=== PATIENT | female | born 1990 | race Caucasian/White ===

== ENCOUNTER 2017-05-16 18:56 | Emergency (ER) | payer OTHER ==
--- NOTE | 2017-05-16 20:09 | UC ---
Respiratory Complaint HPI - HPI Summary HPI Summary: 26 yo female with cough for one month Initially was dry and she felt it was due to allergies past 4 days cough has markedly increased and is at times productive wheezes occasionally no fever no SOB states her current cough is typical of her bronchitis - History of Current Complaint Chief Complaint: UCRespiratory Stated Complaint: COUGH Time Seen by Provider: 05/16/17 19:33 Hx Obtained From: Patient Hx Last Menstrual Period: SPOTTING NOW Onset/Duration: Sudden Onset, Lasting Weeks, Worse Since - 4 days Timing: Constant Severity Initially: Mild Severity Currently: Severe Pain Intensity: 4 Pain Scale Used: 0-10 Numeric Character: Cough: Productive - at times Associated Signs And Symptoms: Positive: Wheezing - at times - Allergies/Home Medications Allergies/Adverse Reactions: Allergies Allergy/AdvReac Type Severity Reaction Status Date / Time SEASONAL Allergy Unknown Unknown Uncoded 05/16/17 19:42 Reaction Details PMH/Surg Hx/FS Hx/Imm Hx Previously Healthy: Yes Respiratory History: Asthma, Bronchitis, Pneumonia - Surgical History Surgical History: Yes Surgery Procedure, Year, and Place: APPY, LASIX SURGERY - Family History Known Family History: Positive: Hypertension - Social History Alcohol Use: Rare Substance Use Type: None Smoking Status (MU): Never Smoked Tobacco Review of Systems Constitutional: Fatigue Skin: Negative Eyes: Negative ENT: Negative Respiratory: Cough Cardiovascular: Negative Gastrointestinal: Negative Genitourinary: Negative Motor: Negative Neurovascular: Negative Musculoskeletal: Negative Neurological: Negative Psychological: Negative Is Patient Immunocompromised?: No All Other Systems Reviewed And Are Negative: Yes Physical Exam Triage Information Reviewed: Yes Appearance: Well-Appearing, No Pain Distress, Well-Nourished Vital Signs: Initial Vital Signs Temp 99.2 F 05/16/17 19:43 Pulse 110 05/16/17 19:43 Resp 20 05/16/17 19:43 BP 119/84 05/16/17 19:43 Pulse Ox 99 05/16/17 19:43 Eyes: Positive: Conjunctiva Clear ENT: Positive: Hearing grossly normal, TMs normal. Negative: Nasal congestion, Nasal drainage, Tonsillar swelling, Tonsillar exudate, Trismus, Muffled/hoarse voice Neck: Positive: Supple, Nontender Respiratory: Positive: Normal breath sounds, No respiratory distress, Other: - frequent cough Cardiovascular: Positive: RRR, No Murmur, Tachycardia Musculoskeletal: Positive: ROM Intact, No Edema Neurological: Positive: Alert Psychological Exam: Normal Skin Exam: Normal UC Diagnostic Evaluation - Laboratory O2 Sat by Pulse Oximetry: 99 - normal, not hypoxic Respiratory Course/Dx - Course Course Of Treatment: pt refuse CXR at this point - Differential Dx/Diagnosis Provider Diagnoses: acute bronchitis Discharge - Discharge Plan Condition: Stable Disposition: HOME Prescriptions: Amoxicillin PO (*) [Amoxicillin 875 MG (*)] 875 mg PO BID #14 tab Patient Education Materials: Acute Bronchitis (ED) Referrals: Ahsan Peacock DO [Primary Care Provider] - 3 Days (if not improved)
[2017-05-16] MEDS ORDERED: Albuterol HFA INHALER* 8 gm MDI INH ONE (20:10)
[2017-05-16] MEDS ORDERED: Amoxicillin PO (*) 500 MG CAP PO ONE (20:12)
[2017-05-16 20:40] VITALS: BP 119/84
== END 2017-05-16 20:43 | disposition home or self-care (01) ==
LOC: UCCORT 18:56
DX: J20.9 Acute bronchitis, unspecified (principal)
CPT/HCPCS: 99212; A9270-GY; G0463

== ENCOUNTER 2017-10-19 11:23 | Emergency (ER) | payer SELFPAY ==
[2017-10-19 12:32] VITALS: BP 115/67
[2017-10-19] MEDS ORDERED: Ondansetron ODT TAB* 4 MG PO ONE (13:09)
--- NOTE | 2017-10-19 13:14 | UC ---
Nausea/Vomiting/Diarrhea HPI - HPI Summary HPI Summary: 26 female presents to with complaints of having a sinus infection, untreated for the past week that has been improving however is still lingering as well as new symptoms of nausea, vomiting and diarrhea several times in the past 12 hours. Denies significant abdominal pain, just when vomiting, muscle soreness. No blood in vomit or diarrhea. Normal urination and no genitalia symptoms. Denies known flu exposure. No body aches, fever/chills. States still having sinus congestion, pressure and top of her teeth ache but has improved since it first started. No other complaints. No PMHx. Has been taking sips of water. States child has same n/v/d symptoms. No recent take out food, or leftovers. No recent travel. - History of Current Complaint Chief Complaint: UCAbdominalPain Stated Complaint: STOMACH ACHE Time Seen by Provider: 10/19/17 12:30 Hx Obtained From: Patient Hx Last Menstrual Period: 03/04/15 Onset/Duration: Sudden Onset, Lasting Hours, Still Present Timing: Constant Severity Initially: Mild Severity Currently: Mild Pain Intensity: 3 Pain Scale Used: 0-10 Numeric Location: Diffuse Aggravating Factor(s): Food Alleviating Factor(s): Nothing, Position - laying down, Vomiting Nausea/Vomiting Presence: Nauseated, Vomiting Vomiting Frequency: Every 15-60 minutes Nausea/Vomiting Duration: 0-12 hours Vomiting Characteristics: Retching, Bilious Diarrhea Presence: Yes Diarrhea Frequency: Every 15-60 minutes Diarrhea Duration: 0-12 hours Diarrhea Characteristics: Watery - Allergies/Home Medications Allergies/Adverse Reactions: Allergies Allergy/AdvReac Type Severity Reaction Status Date / Time SEASONAL Allergy Unknown Unknown Uncoded 10/19/17 12:32 Reaction Details Home Medications: Home Medications Dextroamphetamine/Amphetamine [Adderall 10 mg-] 1 tab PO DAILY 10/19/17 [ History Confirmed 10/19/17] PMH/Surg Hx/FS Hx/Imm Hx - Additional Past Medical History Additional PMH: Denies DM HTN and asthma - Surgical History Surgical History: Yes Surgery Procedure, Year, and Place: APPY, LASIX SURGERY - Family History Known Family History: Positive: Hypertension - Social History Alcohol Use: Occasionally Substance Use Type: None Smoking Status (MU): Never Smoked Tobacco Review of Systems Constitutional: Negative ENT: Sore Throat, Nasal Discharge, Sinus Congestion, Sinus Pain/Tenderness Respiratory: Cough - improved/resolved Cardiovascular: Negative Gastrointestinal: Vomiting, Diarrhea, Nausea Genitourinary: Negative Musculoskeletal: Negative Neurological: Negative All Other Systems Reviewed And Are Negative: Yes Physical Exam Triage Information Reviewed: Yes Appearance: No Pain Distress, Well-Nourished, Ill-Appearing - with dried vomit on shirt Vital Signs: Initial Vital Signs Temp 98.3 F 10/19/17 12:26 Pulse 74 10/19/17 12:26 Resp 18 10/19/17 12:26 BP 115/67 10/19/17 12: Pulse Ox 100 10/19/17 12:26 Vital Signs Reviewed: Yes Eyes: Positive: Conjunctiva Clear ENT: Positive: Pharynx normal, Nasal congestion, TMs normal - with serous effusion behind TM, Sinus tenderness, Uvula midline. Negative: Tonsillar swelling, Tonsillar exudate Dental: Positive: Percussion Tenderness @ - maxillary and frontal, Cervical Lymphadenopathy Neck: Positive: Supple, Nontender, No Lymphadenopathy Respiratory: Positive: Chest non-tender, Lungs clear, Normal breath sounds, No respiratory distress, No accessory muscle use Cardiovascular: Positive: RRR, No Murmur, Pulses Normal, Brisk Capillary Refill Abdomen Description: Positive: Nontender, Soft. Negative: Distended, Guarding Bowel Sounds: Positive: Present Musculoskeletal: Positive: Strength Intact Neurological: Positive: Alert Skin Exam: Normal - normal skin turgor Re-Evaluation - Re-Evaluation First Eval Re-Evaluation Time: 13:30 Change: Improved - feels better after zofran, able to keep down water po Naus/Vom/Diarrhea Course/Dx - Course Course Of Treatment: appears to have had sinusitis, now suffering from viral gastroenteritis. will treat with zofran. increase fluids. told if sinusitis symptoms still lingering/worsen or do not improve within 2 days can start antibiotics in 2 days. flonase. saline rinses and hot showers/warm compresses. probiotics and zofran/fluids for GI illness. Aware of worsening signs and symptoms to watch out for. Follow up. No other concerns at this time. Normal vitals. Patient agrees and understands plan/treatment. Understands not to being antibotics until GI illness has improved and probiotics taken for 2 days and only if needed for sinusitis, as it may resolve and not be needed. no other concerns at this time. - Differential Dx/Diagnosis Differential Diagnoses - Female: Gastroenteritis (Viral), Vomiting, Diarrhea, Gastritis, Other - sinusitis Provider Diagnoses: gastroenteritis, sinusitis Condition At Discharge: Stable Discharge - Discharge Plan Condition: Stable Disposition: HOME Prescriptions: Amoxicillin/Clavulanate TAB* [Augmentin TAB 875*] 875 mg PO BID #20 tab Fluticasone NASAL SPRAY 50MCG* [Flonase NASAL SPRAY 50MCG*] 2 spray BOTH NARES DAILY #1 btl Lactobacillus Acidophilus [Probiotic Acidophilus] 1 cap PO DAILY #25 cap Ondansetron ODT TAB* [Zofran 4 MG Odt TAB*] 4 mg PO Q6H PRN #15 tab.odt PRN Reason: Nausea Patient Education Materials: Probiotic (By mouth), Sinusitis (ED), Gastroenteritis (ED), Acute Nausea and Vomiting (ED) Referrals: Dhaval Santiago DO [Primary Care Provider] - Additional Instructions: Take prescribed zofran to help with nausea/vomiting. Increase fluid intake. Take daily probiotics. When able to tolerate food, eat bland BRAT diet (bananas, rice, applesauce, toast). If sinusitis symptoms do not improve, worsen or still occuring after 2 more days you may take antibiotic, however do not take if not needed and until GI symptoms improve. Flonase nasal spray, decongestant over the counter, nasal saline rinses, hot showers, warm compresses over sinuses. Follow up with PCP. Any new or worsening symptoms please seek medical attention promptly, as discussed. Stay hydrated, wash hands, cover mouth as illness is contagious.
== END 2017-10-19 13:34 | disposition home or self-care (01) ==
LOC: UCCORT 11:23
DX: K52.9 Noninfective gastroenteritis and colitis, unspecified (principal); J32.9 Chronic sinusitis, unspecified
CPT/HCPCS: 99212; A9270-GY; G0463